=== PATIENT | female | born 1970 | race American Indian/Alaskan Native ===

== ENCOUNTER 2019-03-15 16:29 | Emergency (ER) | payer MEDICAID ==
--- NOTE | 2019-03-15 17:34 | Event Note ---
ED Screening Note ED Screening Note: This initial assessment/diagnostic orders/clinical plan/treatment(s) is/are subject to change based on patients health status, clinical progression and re- assessment by fellow clinical providers in the ED. Further treatment and workup at subsequent clinical providers discretion. Patient/guardian urged not to elope from the ED as their condition may be serious if not clinically assessed and managed. Initial orders include: 48yo BF states that she has significant CP and L arm numbness that began a day ago. She states that she was recently given oral nitroglycerin tablets and Aspirin by EMS. She further states that her CP now feels like a heaviness and she has a feeling of dizziness and blurred vision.
[2019-03-15 18:20] LABS: Basophils # (Auto) 0.1 K/mm3 (0.0-0.1); Basophils % (Auto) 1.3 % (0.0-1.8); Eosinophils # (Auto) 0.1 K/mm3 (0.0-0.4); Hemoglobin 13.4 gm/dl (10.1-14.3); Lymphocytes # (Auto) 2.4 K/mm3 (1.2-5.4); Mean Corpuscular HGB Conc 33 % (30-34); Mean Corpuscular Volume 86 fl (79-97); Monocytes # (Auto) 0.4 K/mm3 (0.0-0.8); Monocytes % (Auto) 5.7 % (0.0-7.3); Platelet Count 313 K/mm3 (140-440); Red Blood Count 4.79 M/mm3 (3.65-5.03); Red Cell Distribution Width 15.9 % (13.2-15.2)
--- NOTE | 2019-03-15 18:35 | XRay Report ---
CHEST 1 VIEW 1755 INDICATION / CLINICAL INFORMATION: Chest Pain. COMPARISON: None available. FINDINGS: SUPPORT DEVICES: None HEART / MEDIASTINUM: No significant abnormality. LUNGS / PLEURA: No significant pulmonary or pleural abnormality. No pneumothorax. ADDITIONAL FINDINGS: No significant additional findings. IMPRESSION: No significant acute abnormality Signer Name: Jluis Webster MD Signed: 03/15/2019 6:30 PM Workstation Name: [id number]
[2019-03-15 18:45] LABS: BUN/Creatinine Ratio 10; Blood Urea Nitrogen 6 mg/dL (7-17); Calcium 9.2 mg/dL (8.4-10.2); Hemolysis Index 11
[2019-03-15] MEDS ORDERED: TORADOL IV ONE (20:48)
[2019-03-15] MEDS ORDERED: FLEXERIL PO ONE (20:48)
--- NOTE | 2019-03-15 21:41 | Cat Scan Report ---
CT head/brain wo con INDICATION / CLINICAL INFORMATION: 48 years Female; left arm paresthesias. TECHNIQUE: Routine CT head without contrast. All CT scans at this location are performed using CT dos e reduction for ALARA by means of automated exposure control. COMPARISON: None. FINDINGS: BRAIN / INTRACRANIAL CONTENTS: There is some motion artifact. However, the brain appears to demonstra te appropriate attenuation. There is no clear CT evidence of acute intracranial hemorrhage or signifi cant mass effect at. The ventricular system is appropriate in size and configuration. ORBITS: No significant abnormality of visualized orbits. SINUSES / MASTOIDS: No significant abnormality the visualized paranasal sinuses or mastoid air cells. CRANIOCERVICAL JUNCTION: No significant abnormality. ADDITIONAL FINDINGS: None. IMPRESSION: 1. There is no CT evidence of acute intracranial process. Signer Name: Osvaldo Araiza MD Signed: 03/15/2019 9:37 PM Workstation Name: [id number]
--- NOTE | 2019-03-15 21:46 | Cat Scan Report ---
CT cervical spine wo con INDICATION / CLINICAL INFORMATION: 48 years Female; left arm paresthesias. TECHNIQUE: Axial CT images of the cervical spine were obtained. Sagittal and coronal reformatted images were pr oduced. All CT scans at this location are performed using CT dose reduction for ALARA by means of aut omated exposure control. COMPARISON: None available. FINDINGS: POST-SURGICAL CHANGES: None. ALIGNMENT: This mild curvature the cervical spine, convex toward the left. However, there is no signi ficant spondylolisthesis at. VERTEBRAE: There is anterior ossific information at C5-6 and C6-7. Milder findings are noted at C4-5. There is no definitive CT evidence of acute fracture involving the cervical spine. INTRAVERTEBRAL DISCS: The left facet and uncovertebral joint hypertrophy at C3-4 results in moderate to marked left neural foraminal narrowing at. There appears be a central disc bulge at C5-6 which mil dly effaces the ventral subarachnoid space at. PARASPINAL SOFT TISSUES: No significant abnormality. ADDITIONAL FINDINGS: None. IMPRESSION: 1. There is no CT evidence of acute fracture involving the cervical spine. Signer Name: Osvaldo Araiza MD Signed: 03/15/2019 9:42 PM Workstation Name: [id number]
--- NOTE | 2019-03-15 23:10 | Emergency Department Report ---
ED Chest Pain HPI - General Chief Complaint: Chest Pain Stated Complaint: CHEST PAIN Time Seen by Provider: 03/15/19 20:32 Source: patient, EMS Mode of arrival: Ambulatory Limitations: No Limitations - History of Present Illness Initial Comments: 48-year-old female with a past medical history of asthma, thyroid disease, hypertension, obesity, and anxiety presnts to the hospital with complaints of chest pain since yesterday. Patient complains of a constant chest pressure that radiates to the left arm and hand paresthesias. Pain is worse with palpation and movement. Patient denies injury. She has been lifting her grandchildren. Patient complains of some shortness of breath with exertion and improved with her asthma inhaler. Occasional cough reported with intermittent wheezing. Patient does not smoke cigarettes, have history of PEs as DVT, no recent travel reported, she does not take control pills that she's had a hysterectomy, denies calf tenderness or leg edema. Patient denies headache or neck pain. She does have a history of paresthesias to this hand in the past but it has gotten worse since yesterday. She received aspirin and nitroglycerin in route with mild improvement. No reports of nausea, vomiting, or diaphoresis. Symptoms are not worse with exertion. Severity scale (0 -10): 5 - Related Data Previous Rx's Medication Instructions Recorded Last Taken Type Ibuprofen [Motrin] 800 mg PO Q8HR PRN #30 tablet 03/15/19 Unknown Rx Metaxalone [Skelaxin] 800 mg PO TID #20 tablet 03/15/19 Unknown Rx traMADol [Ultram 50 MG tab] 50 mg PO Q6HR PRN #20 tablet 03/15/19 Unknown Rx Allergies Allergy/AdvReac Type Severity Reaction Status Date / Time No Known Allergies Allergy Verified 03/15/19 17:30 Heart Score - HEART Score History: Slightly suspicious EKG: Normal Age: 45-65 Risk factors: 1-2 risk factors Troponin: < normal limit HEART Score: 2 ED Review of Systems ROS: Stated complaint: CHEST PAIN Other details as noted in HPI Comment: All other systems reviewed and negative ED Past Medical Hx - Past Medical History Previous Medical History?: Yes Hx Hypertension: Yes Hx Psychiatric Treatment: Yes (anxiety) Additional medical history: thyroid dz (pt is unsure of which type) - Surgical History Past Surgical History?: Yes Additional Surgical History: Hysterectomy - Social History Smoking Status: Never Smoker Substance Use Type: None - Medications Home Medications: Home Medications Medication Instructions Recorded Confirmed Last Taken Type Ibuprofen [Motrin] 800 mg PO Q8HR PRN #30 tablet 03/15/19 Unknown Rx Metaxalone [Skelaxin] 800 mg PO TID #20 tablet 03/15/19 Unknown Rx traMADol [Ultram 50 MG tab] 50 mg PO Q6HR PRN #20 tablet 03/15/19 Unknown Rx ED Physical Exam - General Limitations: No Limitations - Other Other exam information: Gen.: No acute distress Head: Atraumatic Eyes: Normal appearance ENT: Moist mucous membranes Neck: Normal appearance, no posterior midline tenderness, no meningismus Chest: Clear to auscultation bilaterally, reproducible left-sided chest wall tenderness. Left-sided trapezius muscle tenderness Cardiovascular: Regular rate and rhythm Abdomen: Normal appearance, soft, nontender, no rebound or guarding, normal bowel sounds Back: Normal appearance, nontender Extremity: Limited movement of right knee secondary to previous surgery, normal appearance, tenderness or leg edema Neuro: Alert oriented 3, clear speech, mild decreased sensation to left arm compared to the right secondary to paresthesias, equal hand plate conditioner. Patient also reports chronic paresthesias to right leg secondary to sciatic. Equal foot dorsiflexion Psychiatric: Appropriate Skin: No rash ED Course Vital Signs 03/15/19 03/15/19 03/15/19 17:29 20:16 20:46 Temperature 98.7 F Pulse Rate 73 Respiratory 18 Rate Blood Pressure 145/77 145/77 Blood Pressure 134/92 [Right] O2 Sat by Pulse 98 100 99 Oximetry 03/15/19 21:22 Temperature Pulse Rate Respiratory Rate Blood Pressure 145/77 Blood Pressure [Right] O2 Sat by Pulse 99 Oximetry BERONICA score - Beronica Score Age > 65: (0) No Aspirin use within the Past 7 Days: (0) No 3 or more CAD Risk Factors: (0) No 2 or more Angina events in past 24 hrs: (0) No Known CAD with more than 50% Stenosis: (0) No Elevated Cardiac Markers: (0) No ST Deviation Greater than 0.5mm: (0) No BERONICA Score: 0 ED Medical Decision Making - Lab Data Result diagrams: 03/15/19 17:57 03/15/19 17:57 Lab Results 03/15/19 03/15/19 03/15/19 Range/Units 17:57 17:57 20:06 WBC 6.2 (4.5-11.0) K/mm3 RBC 4.79 (3.65-5.03) M/mm3 Hgb 13.4 (10.1-14.3) gm/dl Hct 41.0 (30.3-42.9) % MCV 86 (79-97) fl MCH 28 (28-32) pg MCHC 33 (30-34) % RDW 15.9 H (13.2-15.2) % Plt Count 313 (140-440) K/mm3 Lymph % (Auto) 39.0 H (13.4-35.0) % [place] % (Auto) 5.7 (0.0-7.3) % Eos % (Auto) 2.0 (0.0-4.3) % Baso % (Auto) 1.3 (0.0-1.8) % Lymph # 2.4 (1.2-5.4) K/mm3 [place] # 0.4 (0.0-0.8) K/mm3 Eos # 0.1 (0.0-0.4) K/mm3 Baso # 0.1 (0.0-0.1) K/mm3 Seg Neutrophils % 52.0 (40.0-70.0) % Seg Neutrophils # 3.2 (1.8-7.7) K/mm3 Sodium 138 (137-145) mmol/L Potassium 4.0 (3.6-5.0) mmol/L Chloride 103.7 (98-107) mmol/L Carbon Dioxide 22 (22-30) mmol/L Anion Gap 16 mmol/L BUN 6 L (7-17) mg/dL Creatinine 0.6 L (0.7-1.2) mg/dL Estimated GFR > 60 ml/min BUN/Creatinine Ratio 10 % Glucose 95 (65-100) mg/dL Calcium 9.2 (8.4-10.2) mg/dL Troponin T < 0.010 < 0.010 (0.00-0.029) ng/mL - EKG Data -: EKG Interpreted by Nd EKG shows normal: sinus rhythm, ST-T waves (lvh, no stemi) Rate: normal - EKG Data 03/15/19 23:25 repeat ekg sinus luis rate [address] changes - Radiology Data Radiology results: report reviewed CXR: no acute findings CT cervical spine wo con INDICATION / CLINICAL INFORMATION: 48 years Female; left arm paresthesias. TECHNIQUE: Axial CT images of the cervical spine were obtained. Sagittal and coronal reformatted images were produced. All CT scans at this location are performed using CT dose reduction for ALARA by means of a utomated exposure control. COMPARISON: None available. FINDINGS: POST-SURGICAL CHANGES: None. ALIGNMENT: This mild curvature the cervical spine, convex toward the left. However, there is no significant spondylolisthesis at. VERTEBRAE: There is anterior ossific information at C5-6 and C6-7. Milder findings are noted at C4-5. There is no definitive CT evidence of acute fracture involving the cervical spine. INTRAVERTEBRAL DISCS: The left facet and uncovertebral joint hypertrophy at C3-4 results in moderate to marked left neural foraminal narrowing at. There appears be a central disc bulge at C5-6 which mildly effaces the ventral subarachnoid space at. PARASPINAL SOFT TISSUES: No significant ab normality. ADDITIONAL FINDINGS: None. IMPRESSION: 1. There is no CT evidence of acute fracture involving the cervical spine. CT head/brain wo con INDICATION / CLINICAL INFORMATION: 48 years Female; left arm paresthesias. TECHNIQUE: Routine CT head without contrast. All CT scans at this location are performed using CT dose reduction for ALARA by means of automated exposure control. COMPARISON: None. FINDINGS: BRAIN / INTRACRANIAL CONTENTS: There is some motion artifact. However, the brain appears to demonstrate appropriate attenuation. There is no clear CT evidence of acute intracranial hemorrhage or significant mass effect at. The ventricular system is appropriate in size and configuration. ORBITS: No significant abnormality of visualized orbits. SINUSES / MASTOIDS: No significant abnormality the visualized paranasal sinuses or mastoid air cells. CRANIOCERVICAL JUNCTION: No significant abnormality. ADDITIONAL FINDINGS: None. IMPRESSION: 1. There is no CT evidence of acute intracranial process. - Medical Decision Making Patient's perc score for PE is 0 cp is reproducible and likely muscular skeletal in origin. Suspect that patient does have a left arm radicular pain and CT suggestive of left neural foraminal narrowing and mild central disc bulge (see report) Patient's symptoms improved with Toradol and Flexeril Outpatient follow-up with - Differential Diagnosis msk pain, pneumonia, PE, ID, radiculopathy Critical Care Time: No Critical care attestation.: If time is entered above; I have spent that time in minutes in the direct care of this critically ill patient, excluding procedure time. ED Disposition Clinical Impression: Chest wall pain, Radicular pain in left arm, Neural foraminal stenosis of cervical spine Disposition: TO HOME OR SELFCARE Is pt being admited?: No Does the pt Need Aspirin: No Condition: Stable Instructions: Chest Pain (ED), Cervical Radiculopathy (ED) Additional Instructions: Take the medication as prescribed. Follow-up with your doctor or with the doctor/clinic provided. Return if symptoms worsen as indicated by your discharge instructions. Take the copy of your CAT scan reports to your doctor for further workup and evaluation. Prescriptions: Ibuprofen [Motrin] 800 mg PO Q8HR PRN #30 tablet PRN Reason: Pain, Moderate (4-6) Metaxalone [Skelaxin] 800 mg PO TID #20 tablet traMADol [Ultram 50 MG tab] 50 mg PO Q6HR PRN #20 tablet PRN Reason: Pain Referrals: PRIMARY CARE, [Primary Care Provider] - 2-3 Days Time of Disposition: 23:37
[2019-03-16 00:11] VITALS: BP 134/92
== END 2019-03-16 00:09 | disposition home or self-care (01) ==
LOC: ED 16:29
DX: R07.89 Other chest pain (principal); M99.81 Other biomechanical lesions of cervical region; M79.2 Neuralgia and neuritis, unspecified; F41.9 Anxiety disorder, unspecified; R20.2 Paresthesia of skin; I10 Essential (primary) hypertension; Z90.710 Acquired absence of both cervix and uterus; Z79.899 Other long term (current) drug therapy
CPT/HCPCS: 36415; 70450; 71045; 72125; 80048; 84484; 85025; 93005; 93010; 96374; 99285; J1885